=== PATIENT | male | born 1945 | race Caucasian/White ===

== ENCOUNTER 2018-06-11 07:20 | Emergency (ER) | payer BC ==
[~2018-06-11] VITALS: Ht 157.5 cm; Wt 60.4 kg
[2018-06-11 07:24] VITALS: Ht 157.5 cm; Wt 60.4 kg
[2018-06-11] MEDS ORDERED: SOD CHLORIDE 0.9% 1,000 ML IV STA (07:42)
[2018-06-11] MEDS ORDERED: ONDANSETRON 4 MG INJ IV STA (07:42)
[2018-06-11] MEDS ORDERED: morphine 4 MG/ML VIAL IV STA (07:42)
--- NOTE | 2018-06-11 07:57 | ERD ---
ER Documentation Chief Complaint Chief Complaint abdominal pain w/diarrhea and vomitting since 2199 last night HPI During the patient's encounter translation services were utilized Language: Estonian Source: Video 72-year-old male who presents to the emergency room with less than 12-24 hours of nonbloody nonbilious emesis, loose watery stool diffuse cramping abdominal discomfort worse to the left lower quadrant. No recent travel, sick contacts, antibiotics. Patient states that he did eat fried plantains yesterday. No abdominal surgeries in the past. ROS All systems reviewed and are negative except as per history of present illness. Medications Home Meds Active Scripts Ondansetron (Ondansetron Odt) 4 Mg Tab.rapdis, 4 MG PO Q6H PRN for NAUSEA AND/OR VOMITING, #10 TAB Prov:RADHA HOPKINS MD 06/11/18 PMhx/Soc History of Surgery: No Anesthesia Reaction: No Hx Neurological Disorder: No Hx Respiratory Disorders: No Hx Cardiac Disorders: No Hx Psychiatric Problems: No Hx Miscellaneous Medical Probl: Yes Hx Alcohol Use: No Hx Substance Use: No Hx Tobacco Use: No Smoking Status: Never smoker FmHx Family History: No diabetes Physical Exam Vitals Vital Signs Date Temp Pulse Resp B/P (MAP) Pulse Ox O2 O2 Flow FiO2 Time Delivery Rate 06/11/18 99.0 79 18 137/76 100 07:24 (96) Physical Exam General: Well developed, well nourished, no acute distress Head: Normocephalic, atraumatic. Eyes: Pupils equally reactive, EOM intact ENT: Moist mucous membranes Neck: Supple, no lymphadenopathy Respiratory: Lungs clear bilaterally, no distress Cardiovascular: RRR, no murmurs, rubs, or gallops Abdominal: Soft, focal tenderness to the left lower quadrant with voluntary guarding, no rebound : Deferred MSK: No edema, no unilateral swelling, 5/5 strength Neurologic: Alert and oriented, moving all extremities, normal speech, no focal weakness, no cerebellar signs Skin: No rash Psych: Normal mood Result Diagram: 06/11/18 0830 06/11/18 0830 Results 24 hrs Laboratory Tests Test 06/11/18 08:30 White Blood Count 13.6 10^3/ul Red Blood Count 4.98 10^6/ul Hemoglobin 15.5 g/dl Hematocrit 46.3 % Mean Corpuscular Volume 93.0 fl Mean Corpuscular Hemoglobin 31.1 pg Mean Corpuscular Hemoglobin Concent 33.5 g/dl Red Cell Distribution Width 13.4 % Platelet Count 224 10^3/UL Mean Platelet Volume 8.7 fl Immature Granulocytes % 0.500 % Neutrophils % 90.0 % Lymphocytes % 2.1 % Monocytes % 6.7 % Eosinophils % 0.4 % Basophils % 0.3 % Nucleated Red Blood Cells % 0.0 /100WBC Immature Granulocytes # 0.070 10^3/ul Neutrophils # 12.2 10^3/ul Lymphocytes # 0.3 10^3/ul Monocytes # 0.9 10^3/ul Eosinophils # 0.1 10^3/ul Basophils # 0.0 10^3/ul Nucleated Red Blood Cells # 0.0 10^3/ul Sodium Level 141 mmol/L Potassium Level 4.5 mmol/L Chloride Level 104 mmol/L Carbon Dioxide Level 26 mmol/L Anion Gap 11 Blood Urea Nitrogen 18 mg/dl Creatinine 1.03 mg/dl Est Glomerular Filtrat Rate mL/min mL/min Glucose Level 145 mg/dl Calcium Level 9.9 mg/dl Total Bilirubin 0.8 mg/dl Direct Bilirubin 0.00 mg/dl Indirect Bilirubin 0.8 mg/dl Aspartate Amino Transf (AST/SGOT) 35 IU/L Alanine Aminotransferase (ALT/SGPT) 26 IU/L Alkaline Phosphatase 96 IU/L Total Protein 8.7 g/dl Albumin 4.9 g/dl Globulin 3.80 g/dl Albumin/Globulin Ratio 1.28 Lipase 74 U/L Current Medications Medications Dose Sig/Miroslava Start Time Status Last (Trade) Ordered Route PRN Stop Time Admin Dose Reason Admin Sodium 1,000 ml @ Q1H STAT 06/11/18 DC 06/11/18 Chloride 1,000 mls/hr IV 07:42 06/11/18 08:08 08:41 Morphine 4 mg ONCE STAT 06/11/18 DC 06/11/18 Sulfate IV 07:42 06/11/18 08:08 (morphine) 07:44 Ondansetron 4 mg ONCE STAT 06/11/18 DC 06/11/18 HCl (Zofran IV 07:42 06/11/18 08:08 Inj) 07:44 Procedures/MDM EKG, MONITORS, & DIAGNOSTIC IMAGING: CT abdomen and pelvis: IMPRESSION: CT of the abdomen demonstrates presence of a left inguinal hernia containing a small loop of sigmoid colon. No evidence of obstruction or incarceration is present. Enlarged prostate. Old granulomatous disease of the spleen. RPTAT: PP LAB INTERPRETATION: I reviewed the laboratory testing and it shows no evidence of acute process MEDICAL DECISION MAKING: Patient with likely viral process but given the patient's localized tenderness and voluntary guarding a do believe CT imaging of the abdomen pelvis would be appropriate to rule out diverticulitis and microperforation. Otherwise the patient is hemodynamically stable without signs or symptoms concerning for acute vascular process. ER COURSE: * The patient's symptoms are improved with IV fluids and pain medication. Laboratory testing and diagnostic imaging is unrevealing. The patient's hernia is not likely causing any symptoms. This is very consistent with a viral process. The patient can be safely discharged binh CONSULTATION: None DISPOSITION PLAN: The patient does not have an identifiable emergent medical condition that warrants inpatient hospitalization at this time. The patient is deemed safe for discharge with outpatient follow-up. We discussed follow up with the patient's primary care doctor within 24 to 48 hours as needed. We also discussed return to the emergency room for worsening symptoms or worsening condition. Outpatient referral: Discharge Medications: Zofran Departure Diagnosis: Primary Impression: Nausea vomiting and diarrhea Additional Impression: Generalized abdominal pain Condition: Stable RADHA HOPKINS MD Jun 11, 2018 07:57
[2018-06-11] MEDS ORDERED: ONDA4TAB14 PO (09:30)
[2018-06-11 09:58] VITALS: BP 116/67; PULSE 75; RESP 20
== END 2018-06-11 10:01 | disposition home or self-care (01) ==
LOC: E/R 07:20
DX: R11.2 Nausea with vomiting, unspecified (principal); R19.7 Diarrhea, unspecified; R10.84 Generalized abdominal pain
CPT/HCPCS: 36415; 74176; 80053; 83690; 85025; 96374; 96375; 99285; J2270; J2405; J7030